=== PATIENT | male | born 1975 | race Caucasian/White ===

== ENCOUNTER 2020-06-15 10:57 | Inpatient (IN) | payer MEDICAID, OTHER ==
[~2020-06-15] VITALS: Ht 177.8 cm; Wt 88.5 kg
[2020-06-15] MEDS ORDERED: SODIUM CHLORIDE 0.9% 500 ML IVB ONE (11:26)
[2020-06-15] MEDS ORDERED: PANTOPRAZOLE 40 MG/10 ML VIAL INJ IV STA (11:26)
[2020-06-15] MEDS ORDERED: HYDROmorphone HCL 2 MG/ML VL IV ONE (11:30)
[2020-06-15] MEDS ORDERED: ONDANSETRON HCL 4 MG/2 ML VIAL IV ONE (11:30)
[2020-06-15 12:09] LABS: Basophils # (auto) 0 10 ^3/uL (0-0.2); Basophils % (auto) 0.1 % (0.0-2.0); Eosinophils # (auto) 0 10 ^3/uL (0-0.8); Hemoglobin 15.7 g/dL (13.5-17.5); Lymphocytes # (auto) 0.3 10 ^3/uL (0.4-5.4); Lymphocytes % (auto) 2.3 % (10.0-50.0); Mean Corpuscular Hemoglobin 32.4 pg (28.0-32.0); Mean Corpuscular Hgb Conc. 33.5 g/dL (32.0-36.0); Monocytes # (auto) 0.7 10 ^3/uL (0-1.3); Monocytes % (auto) 6.3 % (0.0-12.0); Neutrophils # (auto) 10.3 10 ^3/uL (1.6-8.6); Neutrophils % (auto) 91.3 % (37.0-80.0); Platelet Count (auto) 163 10^3/uL (140-450); Red Blood Cells 4.85 10^6/uL (4.5-5.90); Red Cell Distribution Width 12.3 % (11.8-14.3); White Blood Cell 11.2 10^3/uL (4.4-10.8)
[2020-06-15 12:37] LABS: Potassium 3.3 mmol/L (3.5-5.1)
[2020-06-15 12:41] LABS: Albumin 4.2 g/dL (3.4-5.0); Calcium 9.3 mg/dL (8.5-10.1)
[2020-06-15 12:50] LABS: Bilirubin, Total 3.3 mg/dL (0.2-1.0); Total Protein 7.3 g/dL (6.4-8.2)
[2020-06-15] MEDS ORDERED: MORPHINE SULF INJ 2 MG/ML SYRINGE 1ML IV PRN (13:15)
[2020-06-15] MEDS ORDERED: POTASSIUM CHL 20MEQ/100ML 100 ML IV ONE (13:15)
[2020-06-15] MEDS ORDERED: NITROGLYCERIN 0.4 MG SL TAB SL PRN (13:15)
[2020-06-15] MEDS ORDERED: SODIUM CHLORIDE 0.9% 1,000 ML IV SCH (13:31)
[2020-06-15] MEDS ORDERED: ONDANSETRON HCL 4 MG/2 ML VIAL IV PRN (13:45)
[2020-06-15] MEDS ORDERED: THIAMINE 100mg/ml INJ (200mg/2ml VIAL) IV ONE (13:45)
[2020-06-15] MEDS: MORPHINE SULF INJ 2 MG/ML SYRINGE 1ML IV PRN ×3 (13:54→23:00)
[2020-06-15] MEDS: metroNIDAZOLE 500MG/100ML 100 ML IV SCH ×2 (13:56→23:21)
[2020-06-15] MEDS: LACTATED RINGER'S 1,000 ML IV SCH ×2 (16:20→23:00)
[2020-06-15] MEDS: PROMETHAZINE HCL 25 MG/ML 1ML IV PRN (16:33)
--- NOTE | 2020-06-15 22:45 | NUR ---
Telemetry admit from [facility] admitted to Telemetry unit. Patient oriented to Chavo Garcia, primary RN, unit, room, bed, and unit policies regarding patient care and visiting hours. Patient now on continuous telemetry monitoring, tele box #[id number] and telemetry reading on arrival to unit is [facility].Patient c/o severe sharp upper abdominal which he rates as 10/10. Will treat with PRN pain medication. Patient weighed by bedscale and encouraged to call if they need something. All questions and concerns addressed, patient verbalized understanding.
[2020-06-15] MEDS: FAMOTIDINE (10MG/ML) 2ML VL IV SCH (23:00)
--- NOTE | 2020-06-15 23:00 | NUR ---
ASSESSMENT The patient began feeling nauseous and started to dry heave. Will treat with PRN zofran.
--- NOTE | 2020-06-15 23:30 | NUR ---
REASSESSMENT Patient's nausea has improved. Will continue to monitor the patient's status.
[2020-06-15] MEDS ORDERED: PNEUMOCOCCAL VACC POLYS 25 MCG/0.5 ML VIAL IM ONE (23:45)
[2020-06-16] MEDS: LORazepam 2MG/ML-1ML VIAL IV PRN (02:09)
[2020-06-16] MEDS: MORPHINE SULF INJ 2 MG/ML SYRINGE 1ML IV PRN ×6 (03:26→23:09)
--- NOTE | 2020-06-16 03:26 | NUR ---
PAIN ASSESSMENT The patient reports 10/10 abdominal pain and is requesting pain medication. Will treat with PRN Morphine and will reassess.
--- NOTE | 2020-06-16 04:26 | NUR ---
PAIN REASSESSMENT The patient reports that his pain severity is 8/10. Will continue to monitor the patient's status.
[2020-06-16] MEDS: LACTATED RINGER'S 1,000 ML IV SCH ×3 (05:20→18:37)
[2020-06-16 05:24] VITALS: BP 150/87
[2020-06-16] MEDS: metroNIDAZOLE 500MG/100ML 100 ML IV SCH ×3 (05:58→22:00)
[2020-06-16 07:33] LABS: Basophils # (auto) 0 10 ^3/uL (0-0.2); Basophils % (auto) 0.1 % (0.0-2.0); Eosinophils # (auto) 0 10 ^3/uL (0-0.8); Hematocrit 50.1 % (41.0-53.0); Hemoglobin 16.6 g/dL (13.5-17.5); Lymphocytes # (auto) 0.6 10 ^3/uL (0.4-5.4); Lymphocytes % (auto) 3.5 % (10.0-50.0); Mean Corpuscular Hemoglobin 33.1 pg (28.0-32.0); Mean Corpuscular Hgb Conc. 33.1 g/dL (32.0-36.0); Mean Corpuscular Volume 99.8 fL (80.0-100.0); Monocytes # (auto) 1.1 10 ^3/uL (0-1.3); Monocytes % (auto) 6.2 % (0.0-12.0); Neutrophils # (auto) 15.7 10 ^3/uL (1.6-8.6); Neutrophils % (auto) 90.2 % (37.0-80.0); Nucleated Red Blood Cells % 0.3 %; Platelet Count (auto) 188 10^3/uL (140-450); Red Blood Cells 5.02 10^6/uL (4.5-5.90); Red Cell Distribution Width 12.7 % (11.8-14.3); White Blood Cell 17.4 10^3/uL (4.4-10.8)
[2020-06-16 07:42] LABS: Albumin 3.6 g/dL (3.4-5.0); Bilirubin, Total 2.8 mg/dL (0.2-1.0); Calcium 8.8 mg/dL (8.5-10.1); Total Protein 6.6 g/dL (6.4-8.2)
[2020-06-16] MEDS: cefTRIAXone 1GM/50ML D5W 50 ML IV SCH (08:46)
[2020-06-16 09:00] VITALS: BP 151/86
[2020-06-16] MEDS: FAMOTIDINE (10MG/ML) 2ML VL IV SCH ×2 (09:35→22:00)
[2020-06-16] MEDS: THIAMINE 100mg/ml INJ (200mg/2ml VIAL) IV SCH (09:36)
[2020-06-16 13:00] VITALS: BP 136/97
--- NOTE | 2020-06-16 14:08 | NUR ---
PT HEART RATE IN 120'S RESTING, GOING UP TO 150 WHEN PT IS OOB TO RESTROOM. DR JENSEN AWARE. MONITORING CLOSELY.
[2020-06-16 17:00] VITALS: BP 145/78
[2020-06-16] MEDS: PROMETHAZINE HCL 25 MG/ML 1ML IV PRN (19:20)
--- NOTE | 2020-06-16 19:20 | NUR ---
Opening Shift Note Assumed care of patient, awake and alert. No S/S of distress/SOB. The patient reports having 3/10 abdominal pain but is feeling nauseous. Will treat with PRN anti-nausea medication. Bed is locked in lowest position with call light within reach. Instructed on POC and to call for assist PRN, will continue to monitor for changes Q1hr and PRN.
[2020-06-16] MEDS: FOLIC ACID 1 MG, MULTIPLE VITAMIN 10 ML, MAGNESIUM SULF SDV 50% 8 MEQ, THIAMINE INJ 100... INJ SCH ×5 (19:28)
[2020-06-16 22:00] VITALS: BP 141/92
--- NOTE | 2020-06-16 23:05 | NUR ---
PAIN ASSESSMENT The patient c/o 7/10 sharp abdominal pain that has been exacerbated after the patient got up to walk to the bathroom. Will treat with PRN pain morphine.
[2020-06-17] MEDS: LACTATED RINGER'S 1,000 ML IV SCH ×4 (01:20→20:41)
[2020-06-17 05:00] VITALS: BP 131/92
[2020-06-17] MEDS: metroNIDAZOLE 500MG/100ML 100 ML IV SCH ×3 (06:00→20:42)
[2020-06-17] MEDS: MORPHINE SULF INJ 2 MG/ML SYRINGE 1ML IV PRN ×4 (06:40→23:23)
[2020-06-17 07:21] LABS: Basophils # (auto) 0 10 ^3/uL (0-0.2); Basophils % (auto) 0.3 % (0.0-2.0); Eosinophils # (auto) 0 10 ^3/uL (0-0.8); Eosinophils % (auto) 0.1 % (0.0-7.0); Hematocrit 44.9 % (41.0-53.0); Hemoglobin 15.5 g/dL (13.5-17.5); Lymphocytes # (auto) 0.7 10 ^3/uL (0.4-5.4); Lymphocytes % (auto) 4.2 % (10.0-50.0); Mean Corpuscular Hemoglobin 33.6 pg (28.0-32.0); Mean Corpuscular Hgb Conc. 34.6 g/dL (32.0-36.0); Mean Corpuscular Volume 97.1 fL (80.0-100.0); Monocytes # (auto) 1.7 10 ^3/uL (0-1.3); Monocytes % (auto) 10.8 % (0.0-12.0); Neutrophils # (auto) 13.3 10 ^3/uL (1.6-8.6); Neutrophils % (auto) 84.6 % (37.0-80.0); Nucleated Red Blood Cells % 0.1 %; Platelet Count (auto) 157 10^3/uL (140-450); Red Blood Cells 4.63 10^6/uL (4.5-5.90); Red Cell Distribution Width 12.3 % (11.8-14.3); White Blood Cell 15.7 10^3/uL (4.4-10.8)
[2020-06-17 07:37] LABS: Potassium 3.7 mmol/L (3.5-5.1)
[2020-06-17 07:47] LABS: BUN/Creatinine Ratio 18.5; Bilirubin, Total 3.2 mg/dL (0.2-1.0); Calcium 8.8 mg/dL (8.5-10.1); Magnesium 2.2 mg/dL (1.6-2.6); Total Protein 5.9 g/dL (6.4-8.2)
[2020-06-17 09:00] VITALS: BP 132/83
[2020-06-17] MEDS: cefTRIAXone 1GM/50ML D5W 50 ML IV SCH (09:17)
[2020-06-17] MEDS: THIAMINE 100mg/ml INJ (200mg/2ml VIAL) IV SCH (09:18)
[2020-06-17] MEDS: FAMOTIDINE (10MG/ML) 2ML VL IV SCH ×2 (09:19→20:42)
--- NOTE | 2020-06-17 12:14 | NUR ---
Est energy needs 7245-5528 kcal (20-25 kcal/kg BW 83.1kg) Est protein needs 66-83g (0.8-1g/kg BW 83.1kg) Will reassess prn. Addendum: 06/17/20 at [address] Amended: Links added.
[2020-06-17] MEDS: FOLIC ACID 1 MG, MULTIPLE VITAMIN 10 ML, MAGNESIUM SULF SDV 50% 8 MEQ, THIAMINE INJ 100... INJ SCH ×5 (18:07)
[2020-06-17 22:00] VITALS: BP 126/90
[2020-06-18] MEDS: LACTATED RINGER'S 1,000 ML IV SCH ×3 (03:32→19:45)
[2020-06-18] MEDS: MORPHINE SULF INJ 2 MG/ML SYRINGE 1ML IV PRN ×3 (03:35→22:59)
[2020-06-18 05:00] VITALS: BP 135/90
[2020-06-18] MEDS: metroNIDAZOLE 500MG/100ML 100 ML IV SCH ×3 (06:09→22:04)
[2020-06-18 07:19] LABS: Basophils # (auto) 0 10 ^3/uL (0-0.2); Basophils % (auto) 0.3 % (0.0-2.0); Eosinophils # (auto) 0 10 ^3/uL (0-0.8); Eosinophils % (auto) 0.2 % (0.0-7.0); Hematocrit 40.2 % (41.0-53.0); Hemoglobin 13.5 g/dL (13.5-17.5); Lymphocytes # (auto) 0.6 10 ^3/uL (0.4-5.4); Lymphocytes % (auto) 6.5 % (10.0-50.0); Mean Corpuscular Hemoglobin 33.3 pg (28.0-32.0); Mean Corpuscular Hgb Conc. 33.5 g/dL (32.0-36.0); Mean Corpuscular Volume 99.5 fL (80.0-100.0); Monocytes # (auto) 1.7 10 ^3/uL (0-1.3); Monocytes % (auto) 16.7 % (0.0-12.0); Neutrophils # (auto) 7.6 10 ^3/uL (1.6-8.6); Neutrophils % (auto) 76.3 % (37.0-80.0); Platelet Count (auto) 146 10^3/uL (140-450); Red Blood Cells 4.04 10^6/uL (4.5-5.90); Red Cell Distribution Width 12.5 % (11.8-14.3); White Blood Cell 9.9 10^3/uL (4.4-10.8)
[2020-06-18 07:40] LABS: Albumin 2.7 g/dL (3.4-5.0); Potassium 3.4 mmol/L (3.5-5.1)
[2020-06-18 07:45] LABS: Bilirubin, Direct 1.5 mg/dL (0-0.2); Total Protein 5.6 g/dL (6.4-8.2)
--- NOTE | 2020-06-18 08:46 | NUR ---
at bedside MD Fernandez at bedside, aware of patient's status. New orders received for clear liq and advance as kerwin. Cont care
[2020-06-18 09:00] VITALS: BP 140/84
[2020-06-18] MEDS ORDERED: POTASSIUM CHL 20 Meq TABLET PO ONE (09:45)
[2020-06-18] MEDS: FAMOTIDINE (10MG/ML) 2ML VL IV SCH ×2 (10:23→22:04)
[2020-06-18] MEDS: cefTRIAXone 1GM/50ML D5W 50 ML IV SCH (10:23)
[2020-06-18] MEDS: THIAMINE 100mg/ml INJ (200mg/2ml VIAL) IV SCH (10:24)
[2020-06-18 13:14] VITALS: BP 141/87
--- NOTE | 2020-06-18 13:45 | NUR ---
Lunch Patient able to tolerate lunch with no s/s of nausea or vomit. Patient requesting to maintain full liq diet for dinner as he feels "like I rushed and ate too fast and don't want to get sick". Will continue full liq diet at this time.
[2020-06-18 17:00] VITALS: BP 146/99
[2020-06-18] MEDS: FOLIC ACID 1 MG, MULTIPLE VITAMIN 10 ML, MAGNESIUM SULF SDV 50% 8 MEQ, THIAMINE INJ 100... INJ SCH ×5 (17:46)
--- NOTE | 2020-06-18 18:49 | NUR ---
Patient tolerating food well with no n/v. Patient denies abd pain at this time. Will advance to soft diet as ordered for breakfast pt verbalized understanding. No s/s of distress or sob noted. Will endorse to oncoming rn.
--- NOTE | 2020-06-18 19:10 | NUR ---
Patient care endorsed Endorsed care to Bridgett viramontes. Call light within reach no acute distress or sob noted.
[2020-06-18 22:00] VITALS: BP 149/91
[2020-06-19] MEDS: LORazepam 2MG/ML-1ML VIAL IV PRN (03:49)
[2020-06-19 05:00] VITALS: BP 148/90
[2020-06-19] MEDS: metroNIDAZOLE 500MG/100ML 100 ML IV SCH ×2 (05:49→14:00)
[2020-06-19] MEDS: LACTATED RINGER'S 1,000 ML IV SCH (05:49)
[2020-06-19 06:39] LABS: White Blood Cell 9.7 10^3/uL (4.4-10.8)
[2020-06-19 06:42] LABS: Hematocrit 38.2 % (41.0-53.0); Hemoglobin 12.8 g/dL (13.5-17.5); Mean Corpuscular Hgb Conc. 33.6 g/dL (32.0-36.0); Mean Corpuscular Volume 101.2 fL (80.0-100.0); Platelet Count (auto) 166 10^3/uL (140-450); Red Blood Cells 3.78 10^6/uL (4.5-5.90); Red Cell Distribution Width 12.6 % (11.8-14.3)
[2020-06-19 06:48] LABS: Basophils % (manual) 0 (0.0-2.0); Eosinophils % (manual) 0 (0-7); Metamyelocytes % 0
[2020-06-19 06:49] LABS: Blast Cells 0; Myelocytes % 0; Promyelocytes % 0; Reactive Lymphocytes 0
[2020-06-19 06:51] LABS: Albumin 2.4 g/dL (3.4-5.0); Bilirubin, Direct 1.1 mg/dL (0-0.2); Magnesium 2.6 mg/dL (1.6-2.6); Potassium 3.2 mmol/L (3.5-5.1)
[2020-06-19 06:55] LABS: Bilirubin, Total 2.3 mg/dL (0.2-1.0); Total Protein 5.4 g/dL (6.4-8.2)
--- NOTE | 2020-06-19 07:33 | NUR ---
Opening Shift Note Assumed care of patient, awake and alert. No S/S of distress/SOB. Denies pain at this time, no s/s distress noted. Bed is locked in lowest position with call light within reach. Instructed on POC and to call for assist PRN, will continue to monitor for changes Q1hr and PRN.
[2020-06-19 07:46] LABS: Band Neutrophils % (manual) 1; Lymphocytes % (manual) 9 (10.0-50.0)
[2020-06-19 07:47] LABS: Monocytes % (manual) 21 (0-12)
[2020-06-19 08:00] VITALS: BP 139/82
[2020-06-19] MEDS: cefTRIAXone 1GM/50ML D5W 50 ML IV SCH (08:22)
[2020-06-19 09:00] VITALS: BP 139/82
[2020-06-19] MEDS: FAMOTIDINE (10MG/ML) 2ML VL IV SCH (09:38)
[2020-06-19] MEDS: THIAMINE 100mg/ml INJ (200mg/2ml VIAL) IV SCH (09:39)
[2020-06-19] MEDS ORDERED: POTASSIUM CHL 20 Meq TABLET PO ONE (10:15)
[2020-06-19] MEDS ORDERED: LEVO500T21 PO (10:43)
[2020-06-19 13:00] VITALS: BP 140/89
--- NOTE | 2020-06-19 14:22 | NUR ---
patient discharged at this time. No s/s of distress noted. Verbalized understanding of discharge instructions give. Follow up instruction with post discharge clinic provided. IV discontinued and tele box returned to ICU
--- NOTE | 2020-06-19 17:34 | NUR ---
assessment Patient discharged home prior to being assessed. Addendum: 06/19/20 at 1734 by Vane INIGUEZ Amended: Links added.
== END 2020-06-19 14:30 | disposition home or self-care (01) | DRG 282 ==
LOC: ER 10:57 → TELE 10:58 → TELE-CENTR 22:30
PROVIDERS: ADMIT Internal Medicine; ATTEND Internal Medicine
PROC: 3E0234Z Introduction of Serum, Toxoid and Vaccine into Muscle, Percutaneous Approach (ICD-10-PCS; 2020-06-15)
PROC: 3E0336Z Introduction of Nutritional Substance into Peripheral Vein, Percutaneous Approach (ICD-10-PCS; principal; 2020-06-16)
DX: K85.20 Alcohol induced acute pancreatitis without necrosis or infection (principal); J18.9 Pneumonia, unspecified organism; R65.10 Systemic inflammatory response syndrome (SIRS) of non-infectious origin without acute organ dysfunction; E87.6 Hypokalemia; K70.9 Alcoholic liver disease, unspecified; E66.3 Overweight; F12.90 Cannabis use, unspecified, uncomplicated; F10.10 Alcohol abuse, uncomplicated; Z71.41 Alcohol abuse counseling and surveillance of alcoholic; Z71.51 Drug abuse counseling and surveillance of drug abuser; Z23 Encounter for immunization; Z68.26 Body mass index [BMI] 26.0-26.9, adult
CPT/HCPCS: 36415; 71045; 74176; 80053; 80061; 80076; 82150; 83036; 83690; 83735; 84132; 85007; 85025; 85027; C9113; G0378; J0696; J2405; J3480; J3490; J7042

== ENCOUNTER 2020-12-24 12:36 | Inpatient (IN) | payer MEDICAID ==
[~2020-12-24] VITALS: Ht 177.8 cm; Wt 93.8 kg
[~2020-12-24 12:36] MED LIST: LEVO500T31 PO
[2020-12-24] MEDS ORDERED: ONDANSETRON HCL 4 MG/2 ML VIAL IV ONE (13:30)
[2020-12-24] MEDS ORDERED: MORPHINE SULF INJ 2 MG/ML SYRINGE 1ML IV ONE ×2 (13:30→15:45)
[2020-12-24] MEDS ORDERED: SODIUM CHLORIDE 0.9% 1,000 ML IVB ONE (13:30)
[2020-12-24 14:09] LABS: Basophils # (auto) 0 10 ^3/uL (0-0.2); Basophils % (auto) 0.3 % (0.0-2.0); Eosinophils # (auto) 0 10 ^3/uL (0-0.8); Eosinophils % (auto) 0.1 % (0.0-7.0); Hematocrit 45.6 % (41.0-53.0); Hemoglobin 15.5 g/dL (13.5-17.5); Lymphocytes # (auto) 0.6 10 ^3/uL (0.4-5.4); Lymphocytes % (auto) 5.9 % (10.0-50.0); Mean Corpuscular Hemoglobin 33.3 pg (28.0-32.0); Mean Corpuscular Volume 97.9 fL (80.0-100.0); Monocytes # (auto) 0.7 10 ^3/uL (0-1.3); Neutrophils # (auto) 8.6 10 ^3/uL (1.6-8.6); Neutrophils % (auto) 86.7 % (37.0-80.0); Platelet Count (auto) 179 10^3/uL (140-450); Red Blood Cells 4.66 10^6/uL (4.5-5.90); Red Cell Distribution Width 11.8 % (11.8-14.3); White Blood Cell 9.9 10^3/uL (4.4-10.8)
[2020-12-24 14:31] LABS: INR 1.02 (0.9-1.15); Partial Thromboplastin Time 24.2 sec (23.0-31.2)
[2020-12-24 14:35] LABS: Albumin 4.4 g/dL (3.4-5.0); BUN/Creatinine Ratio 30.5; Calcium 9.8 mg/dL (8.5-10.1)
[2020-12-24 14:37] LABS: Bilirubin, Total 1.8 mg/dL (0.2-1.0); Total Protein 7.7 g/dL (6.4-8.2)
[2020-12-24 14:39] LABS: Potassium 4.3 mmol/L (3.5-5.1)
[2020-12-24] MEDS ORDERED: HYDROmorphone HCL 2 MG/ML VL ONE (15:56)
[2020-12-24] MEDS ORDERED: LORazepam 2MG/ML-1ML VIAL IV PRN (16:00)
[2020-12-24] MEDS ORDERED: HYDROmorphone HCL 2 MG/ML VL IV ONE (16:00)
[2020-12-24] MEDS: LACTATED RINGER'S 1,000 ML IV SCH (16:45)
[2020-12-24] MEDS: HYDROmorphone HCL 2 MG/ML VL IV PRN ×2 (18:53→22:48)
[2020-12-25] MEDS: FOLIC ACID 1 MG, MAGNESIUM SULF SDV 50% 8 MEQ, THIAMINE INJ 100 MG in D5W 5% 1,000 ML INJ SCH ×2 (00:58→18:00)
[2020-12-25] MEDS: HYDROmorphone HCL 2 MG/ML VL IV PRN ×5 (02:35→21:15)
[2020-12-25 04:30] VITALS: BP 150/93
[2020-12-25 05:00] VITALS: BP 150/93
[2020-12-25] MEDS: LACTATED RINGER'S 1,000 ML IV SCH ×3 (06:57→12:17)
[2020-12-25] MEDS: PANTOPRAZOLE 40 MG/10 ML VIAL INJ IV SCH (08:44)
[2020-12-25 09:00] VITALS: BP 149/89
[2020-12-25 09:44] LABS: Basophils # (auto) 0 10 ^3/uL (0-0.2); Basophils % (auto) 0.4 % (0.0-2.0); Eosinophils # (auto) 0 10 ^3/uL (0-0.8); Eosinophils % (auto) 0.2 % (0.0-7.0); Hematocrit 44.4 % (41.0-53.0); Hemoglobin 15.1 g/dL (13.5-17.5); Lymphocytes # (auto) 0.8 10 ^3/uL (0.4-5.4); Lymphocytes % (auto) 7.1 % (10.0-50.0); Mean Corpuscular Hgb Conc. 34.1 g/dL (32.0-36.0); Mean Corpuscular Volume 96.7 fL (80.0-100.0); Monocytes # (auto) 1.1 10 ^3/uL (0-1.3); Monocytes % (auto) 9.6 % (0.0-12.0); Neutrophils # (auto) 9.5 10 ^3/uL (1.6-8.6); Neutrophils % (auto) 82.7 % (37.0-80.0); Nucleated Red Blood Cells % 0.1 %; Platelet Count (auto) 190 10^3/uL (140-450); Red Blood Cells 4.59 10^6/uL (4.5-5.90); Red Cell Distribution Width 12.2 % (11.8-14.3); White Blood Cell 11.5 10^3/uL (4.4-10.8)
[2020-12-25 10:01] LABS: Albumin 3.7 g/dL (3.4-5.0); Calcium 8.6 mg/dL (8.5-10.1); Potassium 3.8 mmol/L (3.5-5.1)
[2020-12-25 10:05] LABS: BUN/Creatinine Ratio 35.9; Bilirubin, Total 2.1 mg/dL (0.2-1.0); Total Protein 6.8 g/dL (6.4-8.2)
[2020-12-25] MEDS: cefTRIAXone 1GM/50ML D5W 50 ML IV SCH (11:13)
[2020-12-25 13:00] VITALS: BP 132/94
[2020-12-25 17:25] VITALS: BP 136/104
[2020-12-25 22:00] VITALS: BP 140/96
[2020-12-26] MEDS: LACTATED RINGER'S 1,000 ML IV SCH ×3 (00:08→14:28)
[2020-12-26] MEDS: HYDROmorphone HCL 2 MG/ML VL IV PRN ×5 (01:19→20:06)
[2020-12-26 05:00] VITALS: BP 139/87
[2020-12-26 06:50] LABS: Basophils # (auto) 0 10 ^3/uL (0-0.2); Basophils % (auto) 0.2 % (0.0-2.0); Eosinophils # (auto) 0 10 ^3/uL (0-0.8); Eosinophils % (auto) 0.3 % (0.0-7.0); Hematocrit 40.1 % (41.0-53.0); Hemoglobin 13.6 g/dL (13.5-17.5); Lymphocytes # (auto) 0.7 10 ^3/uL (0.4-5.4); Lymphocytes % (auto) 6.4 % (10.0-50.0); Mean Corpuscular Hemoglobin 33.1 pg (28.0-32.0); Mean Corpuscular Volume 97.4 fL (80.0-100.0); Monocytes # (auto) 1.5 10 ^3/uL (0-1.3); Monocytes % (auto) 13.9 % (0.0-12.0); Neutrophils # (auto) 8.3 10 ^3/uL (1.6-8.6); Neutrophils % (auto) 79.2 % (37.0-80.0); Nucleated Red Blood Cells % 0.2 %; Platelet Count (auto) 155 10^3/uL (140-450); Red Blood Cells 4.11 10^6/uL (4.5-5.90); Red Cell Distribution Width 11.9 % (11.8-14.3); White Blood Cell 10.5 10^3/uL (4.4-10.8)
[2020-12-26 07:03] LABS: Albumin 3.4 g/dL (3.4-5.0); Calcium 8.7 mg/dL (8.5-10.1)
[2020-12-26 07:12] LABS: BUN/Creatinine Ratio 36.4; Bilirubin, Total 1.8 mg/dL (0.2-1.0); Total Protein 6.6 g/dL (6.4-8.2)
[2020-12-26 08:00] VITALS: BP 133/79
[2020-12-26 09:00] VITALS: BP 133/79
[2020-12-26] MEDS: PANTOPRAZOLE 40 MG/10 ML VIAL INJ IV SCH (09:21)
[2020-12-26] MEDS: cefTRIAXone 1GM/50ML D5W 50 ML IV SCH (09:21)
[2020-12-26 13:00] VITALS: BP 133/87
[2020-12-26 17:00] VITALS: BP 142/90
[2020-12-26] MEDS: FOLIC ACID 1 MG, MAGNESIUM SULF SDV 50% 8 MEQ, THIAMINE INJ 100 MG in D5W 5% 1,000 ML INJ SCH (17:33)
[2020-12-26 23:13] VITALS: BP 134/86
[2020-12-27] MEDS: HYDROmorphone HCL 2 MG/ML VL IV PRN ×6 (00:05→21:56)
[2020-12-27] MEDS: LACTATED RINGER'S 1,000 ML IV SCH ×3 (00:06→16:05)
[2020-12-27 05:30] VITALS: BP 145/93
[2020-12-27 06:20] LABS: Basophils # (auto) 0 10 ^3/uL (0-0.2); Basophils % (auto) 0.2 % (0.0-2.0); Eosinophils # (auto) 0.1 10 ^3/uL (0-0.8); Eosinophils % (auto) 1.3 % (0.0-7.0); Hematocrit 36.7 % (41.0-53.0); Hemoglobin 12.7 g/dL (13.5-17.5); Lymphocytes # (auto) 0.7 10 ^3/uL (0.4-5.4); Lymphocytes % (auto) 8.4 % (10.0-50.0); Mean Corpuscular Hemoglobin 33.6 pg (28.0-32.0); Mean Corpuscular Hgb Conc. 34.7 g/dL (32.0-36.0); Mean Corpuscular Volume 96.6 fL (80.0-100.0); Monocytes # (auto) 1.4 10 ^3/uL (0-1.3); Monocytes % (auto) 16.3 % (0.0-12.0); Neutrophils # (auto) 6.2 10 ^3/uL (1.6-8.6); Neutrophils % (auto) 73.8 % (37.0-80.0); Platelet Count (auto) 137 10^3/uL (140-450); Red Cell Distribution Width 11.7 % (11.8-14.3); White Blood Cell 8.4 10^3/uL (4.4-10.8)
[2020-12-27 08:00] VITALS: BP 128/74
[2020-12-27] MEDS: cefTRIAXone 1GM/50ML D5W 50 ML IV SCH (08:47)
[2020-12-27] MEDS: PANTOPRAZOLE 40 MG/10 ML VIAL INJ IV SCH (08:48)
[2020-12-27 09:00] VITALS: BP 138/63
[2020-12-27 13:00] VITALS: BP 160/97
[2020-12-27 17:00] VITALS: BP 142/104
[2020-12-27] MEDS: FOLIC ACID 1 MG, MAGNESIUM SULF SDV 50% 8 MEQ, THIAMINE INJ 100 MG in D5W 5% 1,000 ML INJ SCH (18:02)
[2020-12-27 22:00] VITALS: BP 155/92
[2020-12-28 05:00] VITALS: BP 154/90
[2020-12-28] MEDS: LACTATED RINGER'S 1,000 ML IV SCH ×4 (08:00→23:57)
[2020-12-28 08:03] LABS: Albumin 3.6 g/dL (3.4-5.0); BUN/Creatinine Ratio 11.1; Bilirubin, Total 1.3 mg/dL (0.2-1.0); Calcium 8.8 mg/dL (8.5-10.1); Total Protein 7.3 g/dL (6.4-8.2)
[2020-12-28 09:00] VITALS: BP 134/94
[2020-12-28] MEDS ORDERED: POTASSIUM CHLORIDE 40 MEQ, LIDOCAINE 1% (LOCAL ANESTH.) 4 ML in SODIUM CHL 0.9% 250 ML IV ONE (10:00)
[2020-12-28] MEDS: HYDROmorphone HCL 2 MG/ML VL IV PRN ×3 (10:41→20:40)
[2020-12-28] MEDS: cefTRIAXone 1GM/50ML D5W 50 ML IV SCH (10:41)
[2020-12-28] MEDS: PANTOPRAZOLE 40 MG/10 ML VIAL INJ IV SCH (10:42)
[2020-12-28 13:00] VITALS: BP 123/95
[2020-12-28] MEDS: PROPRANOLOL HCL 20 MG TAB PO SCH ×2 (13:21→22:03)
[2020-12-28 17:00] VITALS: BP 137/86
[2020-12-28] MEDS: FOLIC ACID 1 MG, MAGNESIUM SULF SDV 50% 8 MEQ, THIAMINE INJ 100 MG in D5W 5% 1,000 ML INJ SCH (18:49)
[2020-12-28 22:00] VITALS: BP 124/86
[2020-12-29 05:00] VITALS: BP 139/86
[2020-12-29] MEDS: PROPRANOLOL HCL 20 MG TAB PO SCH ×2 (05:51→14:00)
[2020-12-29 06:52] LABS: Albumin 3.5 g/dL (3.4-5.0); Calcium 8.8 mg/dL (8.5-10.1); Potassium 3.3 mmol/L (3.5-5.1)
[2020-12-29 06:56] LABS: Bilirubin, Total 0.8 mg/dL (0.2-1.0); Total Protein 7.3 g/dL (6.4-8.2)
[2020-12-29] MEDS: LACTATED RINGER'S 1,000 ML IV SCH (08:00)
[2020-12-29] MEDS ORDERED: POTASSIUM CHLORIDE 20 MEQ, LIDOCAINE 1% (LOCAL ANESTH.) 2 ML in SODIUM CHL 0.9% 100 ML IV ONE (08:15)
[2020-12-29 08:52] VITALS: BP 139/88
[2020-12-29] MEDS: cefTRIAXone 1GM/50ML D5W 50 ML IV SCH (09:00)
[2020-12-29] MEDS: PANTOPRAZOLE 40 MG/10 ML VIAL INJ IV SCH (09:56)
[2020-12-29] MEDS: HYDROmorphone HCL 2 MG/ML VL IV PRN (10:04)
[2020-12-29 13:00] VITALS: BP_SYST 121; BP_SYST 126; BP_DIAS 64; BP_DIAS 87
[2020-12-29 13:05] VITALS: BP 126/87
== END 2020-12-29 14:00 | disposition home or self-care (01) | DRG 282 ==
LOC: ER 12:36 → OVERFLOW 15:56 → DOU IN ADS 12-25 04:20
PROVIDERS: ADMIT Nurse Practitioner Acute Care; ATTEND Internal Medicine
DX: K85.20 Alcohol induced acute pancreatitis without necrosis or infection (principal); R16.0 Hepatomegaly, not elsewhere classified; R79.89 Other specified abnormal findings of blood chemistry; K70.9 Alcoholic liver disease, unspecified; Z20.822 Contact with and (suspected) exposure to COVID-19; K29.20 Alcoholic gastritis without bleeding; Q62.5 Duplication of ureter; K86.1 Other chronic pancreatitis; K76.0 Fatty (change of) liver, not elsewhere classified; E87.6 Hypokalemia; Z81.8 Family history of other mental and behavioral disorders
CPT/HCPCS: 36415; 71045; 74176; 76705; 80053; 80320; 83690; 83735; 85025; 85610; 85730; 87426; 96361; 96374; 96375; C9113; G0378; J0696; J2001; J2405